=== PATIENT | female | born 1995 | race Caucasian/White ===

== ENCOUNTER 2017-05-20 11:41 | Emergency (ER) | payer OTHER ==
[~2017-05-20] VITALS: Ht 152.4 cm; Wt 59.0 kg
[2017-05-20 11:45] VITALS: BP 98/51
[2017-05-20] MEDS ORDERED: KEFLEX500 M1 PO (13:27)
[2017-05-20] MEDS ORDERED: ACETAMINOPHEN-1 EAC1 PO (13:27)
== END 2017-05-20 13:59 | disposition home or self-care (01) ==
LOC: ER 11:41
DX: S62.604B Fracture of unspecified phalanx of right ring finger, initial encounter for open fracture (principal); W31.89XA Contact with other specified machinery, initial encounter; Y93.89 Activity, other specified; Y92.89 Other specified places as the place of occurrence of the external cause; Y99.8 Other external cause status